=== PATIENT | female | born 1960 | race Caucasian/White ===

== ENCOUNTER 2017-09-19 11:16 | Emergency (ER) | payer OTHER ==
[~2017-09-19] VITALS: Ht 172.7 cm; Wt 79.0 kg
[~2017-09-19 11:16] MED LIST: ALPR0.5T6 OR; BACT800T5 PO; BUPR-197 PO; CITA-48 PO; MELO15; METO25CR PO; PREM0.622
[2017-09-19 11:18] VITALS: BP 126/68; PULSE 84; RESP 17; TEMP 98.3; O2SAT 95
[2017-09-19] MEDS ORDERED: MELO7.5T4 PO ×2 (11:29)
[2017-09-19] MEDS ORDERED: VENL25TA PO ×2 (11:29)
[2017-09-19] MEDS ORDERED: METO25TA3 PO ×2 (11:29)
[2017-09-19] MEDS ORDERED: ALPR0.5T3 PO ×2 (11:29)
--- NOTE | 2017-09-19 11:36 | PD ---
HPI Chief Complaint: Cardiac Complaint Time Seen by Provider: 11:23 Travel History International Travel<30 days: No Contact w/Intl Traveler<30days: No Traveled to known affect area: No History of Present Illness HPI 57yo F with PMH of SVT s/p ablation here with c/o palpitation that started around 9:50am and lasted about 30 minutes. States she has had this before and normally does not last this long. Currently just feels generalized weakness and usually feels like this after an episode. Denies any fever, chest pain, sob , n/v, abdominal pain, urinary complaints, focal weakness or numbness. PFSH Past Medical History Anxiety: Yes Depression: Yes Heart Rhythm Problems: Yes (VT WITH ABLATION) Cardiovascular Problems: Yes (SVT) ?: Not Tubal Ligation: Yes Past Surgical History Appendectomy: Yes Cardiac Surgery: Yes (VT ABLATION 2012) Section: Yes Hysterectomy: Yes Other Surgery: Yes (VT ABLATION) Social History Alcohol Use: Yes Tobacco Use: No Substance Use: No Allergies-Medications (Allergen,Severity, Reaction): Coded Allergies: No Known Allergies (Verified Adverse Reaction, Unknown, 09/19/17) Reported Meds & Prescriptions Reported Meds & Active Scripts Active Reported Meloxicam 7.5 Mg Tab Unknown Dose PO DAILY Effexor (Venlafaxine HCl) 25 Mg Tab Unknown Dose PO DAILY Metoprolol Tartrate 25 Mg Tab Unknown Dose PO BID Alprazolam 0.5 Mg Tab Unknown Dose PO BID PRN Review of Systems Except as stated in HPI: all other systems reviewed are Neg Physical Exam Narrative GENERAL: 57yo F not in distress. SKIN: Focused skin assessment warm/dry. HEAD: Atraumatic. Normocephalic. EYES: Pupils equal and round. EOMI. No scleral icterus. No injection or drainage. ENT: No nasal bleeding or discharge. Mucous membranes pink and moist. NECK: Trachea midline. No JVD. CARDIOVASCULAR: Regular rate and rhythm. No murmur appreciated. RESPIRATORY: No accessory muscle use. Clear to auscultation. Breath sounds equal bilaterally. GASTROINTESTINAL: Abdomen soft, non-tender, nondistended. MUSCULOSKELETAL: No obvious deformities. No clubbing. No cyanosis. No edema. NEUROLOGICAL: Awake and alert. No obvious cranial nerve deficits. Motor grossly within normal limits. Normal speech. PSYCHIATRIC: Appropriate mood and affect; insight and judgment normal. Data Data Last Documented VS Vital Signs Date Time Temp Pulse Resp B/P (MAP) Pulse Ox O2 Delivery O2 Flow Rate FiO2 09/19/17 11:18 98.3 84 17 126/68 (87) 95 Orders Orders Complete Blood Count With Diff (09/19/17 11:30) Basic Metabolic Panel (Bmp) (09/19/17 11:30) Magnesium (Mg) (09/19/17 11:30) Troponin I (09/19/17 11:30) Thyroid Stimulating Hormone (09/19/17 11:30) Ed Discharge Order (09/19/17 13:05) Labs Laboratory Tests Test 09/19/17 11:37 White Blood Count 7.7 TH/MM3 Red Blood Count 4.38 MIL/MM3 Hemoglobin 13.9 GM/DL Hematocrit 40.6 % Mean Corpuscular Volume 92.6 FL Mean Corpuscular Hemoglobin 31.6 PG Mean Corpuscular Hemoglobin Concent 34.1 % Red Cell Distribution Width 12.0 % Platelet Count 193 TH/MM3 Mean Platelet Volume 8.6 FL Neutrophils (%) (Auto) 59.8 % Lymphocytes (%) (Auto) 16.2 % Monocytes (%) (Auto) 8.3 % Eosinophils (%) (Auto) 14.5 % Basophils (%) (Auto) 1.2 % Neutrophils # (Auto) 4.7 TH/MM3 Lymphocytes # (Auto) 1.2 TH/MM3 Monocytes # (Auto) 0.6 TH/MM3 Eosinophils # (Auto) 1.1 TH/MM3 Basophils # (Auto) 0.1 TH/MM3 CBC Comment DIFF FINAL Differential Comment Blood Urea Nitrogen 22 MG/DL Creatinine 0.64 MG/DL Random Glucose 73 MG/DL Calcium Level 8.9 MG/DL Magnesium Level 2.1 MG/DL Sodium Level 140 MEQ/L Potassium Level 4.3 MEQ/L Chloride Level 106 MEQ/L Carbon Dioxide Level 27.4 MEQ/L Anion Gap 7 MEQ/L Estimat Glomerular Filtration Rate 96 ML/MIN Troponin I LESS THAN 0.02 NG/ML Thyroid Stimulating Hormone 3rd Gen 0.925 uIU/ML MDM Medical Decision Making Medical Screen Exam Complete: Yes Emergency Medical Condition: Yes Interpretation(s) EKG: NSR 74bpm. Normal axis. No ST segment elevation or depression. Differential Diagnosis Dehydration vs. electrolyte abnormality Narrative Course 57yo F with history of SVT here for evaluation after having palpitations today. Pt is currently asymptomatic. Pt is currently in normal sinus rhythm and as per [facility] was in normal sinus rhythm when they arrived. Will check basic labs and electrolytes as well as TSH. Labs reviewed, no leukocytosis. H/H normal. Troponin negative. TSH normal. Glucose 73. Pt tolerating PO, instructed pt to eat. Pt has been observed in the ED with no SVT or symptoms. She wants to go home and has appointment with her [place] ballast inspector. Return precautions given. Diagnosis Primary Impression: Palpitations Patient Instructions: General Instructions Departure Forms: Tests/Procedures Additional Instructions: Please follow up with your ballast inspector at your appointment. Return to the ED if symptoms worsen. Med/Other Pt SpecificInfo: No Change to Meds Disposition: 01 DISCHARGE HOME Condition: Stable CabreraDeannBlanca DO Sep 19, 2017 11:36
[2017-09-19 12:06] LABS: AUTOMATED NEUTROPHIL # 4.7 TH/MM3 (1.8-7.7); BASOPHIL # 0.1 TH/MM3 (0-0.2); BASOPHIL % 1.2 % (0.0-2.0); EOSINOPHIL # 1.1 TH/MM3 (0-0.4); EOSINOPHIL % 14.5 % (0.0-4.0); HEMATOCRIT 40.6 % (35.0-46.0); HEMOGLOBIN 13.9 GM/DL (11.6-15.3); LYMPH % 16.2 % (9.0-44.0); LYMPHOCYTE # 1.2 TH/MM3 (1.0-4.8); MEAN CELL VOLUME 92.6 FL (80.0-100.0); MEAN CORPUSCULAR HEMOGLOBIN 31.6 PG (27.0-34.0); MEAN CORPUSCULAR HGB CONC 34.1 % (32.0-36.0); MEAN PLATELET VOLUME 8.6 FL (7.0-11.0); MONO % 8.3 % (0.0-8.0); MONOCYTE # 0.6 TH/MM3 (0-0.9); NEUT % 59.8 % (16.0-70.0); PLATELET COUNT 193 TH/MM3 (150-450); RED BLOOD COUNT 4.38 MIL/MM3 (4.00-5.30); WHITE BLOOD COUNT 7.7 TH/MM3 (4.0-11.0)
[2017-09-19 12:48] LABS: CHLORIDE 106 MEQ/L (98-107); SODIUM (NA) 140 MEQ/L (136-145)
[2017-09-19 12:50] LABS: CALCIUM 8.9 MG/DL (8.5-10.1)
[2017-09-19 12:51] LABS: BICARBONATE 27.4 MEQ/L (21.0-32.0); BLOOD UREA NITROGEN 22 MG/DL (7-18); GLUCOSE,RANDOM 73 MG/DL (74-106); MAGNESIUM 2.1 MG/DL (1.5-2.5)
[2017-09-19 12:54] LABS: CREATININE 0.64 MG/DL (0.50-1.00); GLOMERULAR FILTRATION RATE 96 ML/MIN (>89)
[2017-09-19 12:59] LABS: TROPONIN I LESS THAN 0.02 NG/ML (0.02-0.05)
[2017-09-19 13:10] VITALS: BP 127/73
--- NOTE | 2017-09-19 21:18 | EKG ---
Date Performed: 09/19/2017 Time Performed: 11:23:47 PTAGE: 57 years EKG: Sinus rhythm NORMAL ECG PREVIOUS TRACING : 05/06/2015 18.32 Compared to prior tracing no significant change DOCTOR: Mikie Broussard Interpretating Date/Time 09/19/2017 21:18:03
== END 2017-09-19 13:18 | disposition home or self-care (01) ==
LOC: PHED 11:16
DX: R00.2 Palpitations (principal); R53.1 Weakness; I47.1 Supraventricular tachycardia
CPT/HCPCS: 80048; 83735; 84443; 84484; 85025; 93005; 99283